=== PATIENT | male | born 1955 | race African-American/Black ===

== ENCOUNTER 2025-10-25 14:03 | Inpatient (IN) | payer BC, MEDICAID ==
[~2025-10-25] VITALS: Ht 188 cm; Wt 82.3 kg
[2025-10-25 14:08] VITALS: O2SAT 98
[2025-10-25] MEDS: SODIUM CHLORIDE 0.9% 1,000 ML IV ONE ×2 (14:31→18:21)
[2025-10-25 14:50] LABS: HEMATOCRIT. 33.7 % (42.0-52.0); HEMOGLOBIN. 10.9 g/dL (14.0-18.0); RED BLOOD CELL COUNT 3.54 mill/uL (4.7-6.1); RED CELL DISTRIBUTION WIDTH 14.1 % (11.6-14.6)
[2025-10-25 14:53] LABS: CREATININE 0.8 mg/dL (0.6-1.3); UREA NITROGEN BLOOD 6 mg/dL (9-23)
[2025-10-25 14:54] LABS: TROPONIN I HIGH SENSITIVITY 6 ng/L (3.0-53)
[2025-10-25 14:55] LABS: ASPARTATE AMINOTRANSFERASE 21 IU/L (<34); BILIRUBIN DIRECT 0.2 mg/dL (<=3.0); BILIRUBIN TOTAL 0.4 mg/dL (0.1-1.0); PROTEIN TOTAL 6.1 g/dL (6.0-8.3)
[2025-10-25 16:15] LABS: LYMPHOCYTES % MANUAL 4.0 % (20.0-50.0); MONOCYTES % MANUAL 5.0 % (2.0-8.0); NEUTROPHILS % MANUAL 91.0 % (45.0-75.0)
[2025-10-25 16:16] LABS: PLATELET ESTIMATE NORMAL
[2025-10-25 20:17] LABS: PLATELET 172 x1000/uL (130-400)
[2025-10-25] MEDS ORDERED: ONDANSETRON HCL 4MG/2ML INJ IV PRN (20:45)
[2025-10-25] MEDS ORDERED: DIPHENHYDRAMINE 50MG/ML VIAL IV PRN (20:45)
[2025-10-25] MEDS ORDERED: IPRATROPIUM/ALBUTEROL 0.5-3(2.5)MG/3ML NEB HHN PRN (20:45)
[2025-10-25] MEDS ORDERED: NALOXONE HCL 0.4MG/ML VIAL IV PRN (20:45)
[2025-10-25] MEDS ORDERED: MORPHINE SULFATE 2 MG/ML INJ (NOT FOR IM USE) IV PRN (20:45)
[2025-10-25] MEDS ORDERED: PIPERACILLIN/TAZOBACTAM 3.375 G in DEXTROSE 5% WATER 50 ML IV SCH (20:45)
[2025-10-25] MEDS: ENOXAPARIN 40MG/0.4ML SYR SUBCUT SCH (21:54)
[2025-10-25] MEDS: PIPERACILLIN/TAZO 3.375G/50ML IV SCH (21:54)
[2025-10-25] MEDS: LORAZEPAM 2MG/ML UD SYRINGE IV PRN (21:54)
[2025-10-26] VITALS (7 sets, daily range): BP systolic 103–158; BP diastolic 70–96; PULSE 84–97; RESP 17–19; TEMP 36.3068–36.7; O2SAT 97–99
[2025-10-26] MEDS: THIAMINE HCL 100 MG in SODIUM CHLORIDE 0.9% 49 ML IV SCH (01:45)
[2025-10-26] MEDS ORDERED: DEXT 5%/0.9% NACL 1,000 ML IV SCH ×2 (10:29→10:30)
[2025-10-26] MEDS ORDERED: SODIUM CHLORIDE 0.9% 500 ML IV ONE (10:30)
[2025-10-26 11:15] LABS: BASOPHILS % 0.3 % (0.0-2.0); EOSINOPHILS % 0.3 % (0.0-5.0); HEMATOCRIT. 38.4 % (42.0-52.0); HEMOGLOBIN. 12.4 g/dL (14.0-18.0); LYMPHOCYTES % 7.2 % (20.0-50.0); MEAN PLATELET VOLUME 10.0 fl (7.4-10.4); MONOCYTES % 8.0 % (2.0-8.0); NEUTROPHILS % 84.2 % (40.0-76.0); PLATELET 219 x1000/uL (130-400); RED BLOOD CELL COUNT 4.02 mill/uL (4.7-6.1); RED CELL DISTRIBUTION WIDTH 14.8 % (11.6-14.6)
[2025-10-26 11:57] LABS: CREATININE 0.8 mg/dL (0.6-1.3); UREA NITROGEN BLOOD 6 mg/dL (9-23)
[2025-10-26 11:59] LABS: PHOSPHORUS 2.0 mg/dL (2.5-4.9); T4 FREE 1.19 ng/dL (0.89-1.76)
[2025-10-26] MEDS: SODIUM CHLORIDE 0.9% 500 ML IV NR (13:05)
[2025-10-26] MEDS: DEXT 5%/0.9% NACL 1,000 ML IV SCH (20:21)
[2025-10-27] VITALS: BP 158/95; PULSE 87; RESP 18; TEMP 36.4; O2SAT 99
[2025-10-27 04:00] VITALS: BP 155/96; PULSE 84; RESP 18; TEMP 37.3; O2SAT 98
[2025-10-27 06:35] LABS: CLARITY URINE CLEAR (CLEAR); COLOR URINE YELLOW (YELLOW); GLUCOSE URINE NEGATIVE (NEGATIVE); KETONES URINE TRACE (NEGATIVE); LEUKOCYTE ESTERASE URINE 1+ (NEGATIVE); NITRITE URINE NEGATIVE (NEGATIVE); OCCULT BLOOD URINE NEGATIVE (NEGATIVE); PH URINE 6.0 (4.5-8.0); PROTEIN URINE NEGATIVE (NEGATIVE); SPECIFIC GRAVITY URINE 1.021 (1.005-1.030); UROBILINOGEN URINE 1.0 E.U./dL (0.2-1.0)
[2025-10-27 07:04] LABS: *AMPHETAMINES SCREEN URINE NEGATIVE (NEGATIVE); *BARBITURATES SCREEN URINE NEGATIVE (NEGATIVE); *BENZODIAZEPINES SCREEN URINE NEGATIVE (NEGATIVE); *COCAINE SCREEN URINE NEGATIVE (NEGATIVE); CANNABINOID URINE SCREEN PRESUMPTIVE POSITIVE (NEGATIVE); ECSTASY MDMA SCREEN URINE NEGATIVE (NEGATIVE); METHADONE URINE SCREEN NEGATIVE (NEGATIVE); OPIATES URINE SCREEN NEGATIVE (NEGATIVE); PHENCYCLIDINE URINE SCREEN NEGATIVE (NEGATIVE)
[2025-10-27 08:00] VITALS: BP 150/95; PULSE 82; RESP 17; TEMP 36.6; O2SAT 100
[2025-10-27 08:08] LABS: SQUAMOUS EPITHELIAL CELL URINE FEW /lpf (RARE/1+)
[2025-10-27 08:09] LABS: BACTERIA URINE NONE SEEN; RBC URINE 0-2 /hpf (0-2)
[2025-10-27 12:43] VITALS: BP 126/83; PULSE 80; RESP 17; TEMP 36.2; O2SAT 99
[2025-10-27] MEDS: DEXTROSE 5% WATER 1,000 ML IV SCH (15:02)
[2025-10-27 16:00] VITALS: BP 145/87; PULSE 89; RESP 18; TEMP 36.4; O2SAT 99
[2025-10-27 20:00] VITALS: BP 114/68; PULSE 84; RESP 19; TEMP 36.6; O2SAT 98
[2025-10-28] VITALS: BP 178/100; PULSE 81; RESP 19; TEMP 36.2; O2SAT 97
[2025-10-28] MEDS: HYDRALAZINE 20MG/ML VIAL IV PRN (00:43)
[2025-10-28 04:00] VITALS: BP 129/81; PULSE 90; RESP 19; TEMP 36.1; O2SAT 98
[2025-10-28 08:00] VITALS: BP 145/90; PULSE 75; RESP 15; TEMP 36; O2SAT 98
[2025-10-28 12:00] VITALS: BP 106/66; PULSE 89; RESP 16; TEMP 36; O2SAT 97
[2025-10-28] MEDS ORDERED: GABA-529 MT (13:49)
[2025-10-28] MEDS ORDERED: RISP3TAB76 PO (13:49)
[2025-10-28] MEDS ORDERED: QUET50TA MT (13:49)
[2025-10-28] MEDS ORDERED: DIVA-156 MT (13:49)
[2025-10-28] MEDS: DIVALPROEX SODIUM 250MG DR TABLET PO SCH (15:40)
[2025-10-28 16:00] VITALS: BP 121/72; PULSE 91; RESP 17; TEMP 36.1; O2SAT 97
[2025-10-28] MEDS: GABAPENTIN 100MG CAPSULE PO SCH (17:17)
[2025-10-28 20:00] VITALS: BP 128/80; PULSE 89; RESP 18; TEMP 36.6; O2SAT 97
[2025-10-28] MEDS: QUETIAPINE FUMARATE 50MG TABLET PO SCH (22:45)
[2025-10-29] VITALS (7 sets, daily range): BP systolic 93–145; BP diastolic 56–85; PULSE 76–110; RESP 16–18; TEMP 36.4–36.6; O2SAT 96–100
[2025-10-29] MEDS ORDERED: RISP-28 MT (09:19)
[2025-10-29] MEDS ORDERED: DIVA-156 MT (09:20)
[2025-10-29] MEDS ORDERED: QUET50TA MT (09:20)
[2025-10-29] MEDS ORDERED: GABA-529 MT (09:20)
== END 2025-10-29 20:53 | disposition home or self-care (01) | DRG 92 ==
LOC: ER 14:03 → EDBD 14:03 → EDBEDREQ 20:00 → EDBEDREQTM 20:00 → ENRESERV 20:07 → 6WST 21:17
PROVIDERS: ADMIT Student in an Organized Health Care Education/Training Program; ATTEND Student in an Organized Health Care Education/Training Program
PROC: GZ56ZZZ Individual Psychotherapy, Supportive (ICD-10-PCS; principal; 2025-10-29)
DX: G92.8 Other toxic encephalopathy (principal); M62.82 Rhabdomyolysis; F25.9 Schizoaffective disorder, unspecified; I10 Essential (primary) hypertension; Z59.00 Homelessness unspecified; D72.829 Elevated white blood cell count, unspecified
CPT/HCPCS: 36415; 71045; 80048; 80076; 80305; 80320; 81003; 82140; 82550; 83735; 84100; 84439; 84443; 84484; 85025; 93005; 93970; 99285; A4606; J0360; J1650; J2060; J2270; J2543; J3411; J7030; J7042; J7070; G0480